=== PATIENT | female | born 1970 | race Caucasian/White ===

== ENCOUNTER 2019-03-20 14:18 | Emergency (ER) | payer MEDICAID ==
--- NOTE | 2019-03-20 16:00 | RADIOLOGY REPORT (SQ) ---
EXAM DESCRIPTION: FINGER RIGHT COMPLETED DATE/TIME: 03/20/2019 3:35 pm REASON FOR STUDY: swollen, unable to bed, crushed in trunk COMPARISON: None. NUMBER OF VIEWS: Three views. TECHNIQUE: AP, lateral, and oblique images acquired of the right fifth finger. LIMITATIONS: None. FINDINGS: MINERALIZATION: Normal. BONES: Dorsal dislocation at the proximal interphalangeal joint fifth digit. No acute fracture iden tified. Soft tissue swelling. SOFT TISSUES: See above. OTHER: No other significant finding. IMPRESSION: 1. Dorsal dislocation fifth proximal interphalangeal joint. Soft tissue swelling. 2. No acute fracture identified. Follow-up examination post reduction films. COMMENT: SITE OF TRAUMA/COMPLAINT MARKED/STAMP COMPLETED: YES. TECHNICAL DOCUMENTATION: JOB ID: [id number] [employer]- All Rights Reserved Reading location - IP/workstation name: [email or web address]
[2019-03-20] MEDS ORDERED: LIDOCAINE 1% INJ-PF (10 MG/ML) 30 ML SDV INJ ONE (16:27)
--- NOTE | 2019-03-20 16:48 | ER Document Report ---
HPI - HPI Time Seen by Provider: 03/20/19 15:26 Pain Level: 3 Notes: Patient is a 49-year-old female presenting with possible dislocation to her right fifth digit. Patient states that she fell approximately 1 week ago. Patient states that she has not sought care for this as she thought it might get better. Patient denies any history of previous trauma to this area. States she has been taken Tylenol and ibuprofen at home. - CONSTITUTIONAL Constitutional: DENIES: Fever, Chills - REPRODUCTIVE Reproductive: DENIES: : Past Medical History - General Information source: Patient - Social History Smoking Status: Current Every Day Smoker Frequency of alcohol use: None Drug Abuse: None Family History: Reviewed & Not Pertinent Patient has suicidal ideation: No Patient has homicidal ideation: No Renal/ Medical History: Denies: Hx Peritoneal Dialysis Psychiatric Medical History: Reports: Hx Depression Surgical Hx: Negative - Immunizations Immunizations up to date: Yes Vertical Provider Document - CONSTITUTIONAL Notes: PHYSICAL EXAMINATION: GENERAL: Well-appearing, well-nourished and in no acute distress. HEAD: Atraumatic, normocephalic. EYES: Pupils equal round extraocular movements intact, conjunctiva are normal. ENT: Nares patent NECK: Normal range of motion LUNGS: No respiratory distress Musculoskeletal: Limited range of motion to right fifth digit, cap refill less than 3 seconds, normal/strong radial pulse. Obvious dislocation noted. Soft tissue swelling noted. NEUROLOGICAL: Normal speech, normal gait. PSYCH: Normal mood, normal affect. SKIN: Warm, Dry, normal turgor, no rashes or lesions noted. - INFECTION CONTROL TRAVEL OUTSIDE OF THE [place] IN LAST 30 DAYS: No Course - Re-evaluation Re-evalutation: Dislocation noted on the x-ray at the fifth PIP joint on the right hand. There is also soft tissue swelling. No fracture was identified. A digital block was performed and attempted reduction of the dislocation. I believe based on palpation that this was achieved however patient refused to repeat x-rays as she states that she has to leave. Patient encouraged to follow-up with orthopedics, splint placed. - Vital Signs Vital signs: Temp Pulse Resp BP Pulse Ox 98.7 F 77 16 118/67 100 03/20/19 14:22 03/20/19 14:22 03/20/19 14:22 03/20/19 14:22 03/20/19 14:22 Procedures - Immobilization Right fifth digit Pre-Proc Neuro Vasc Exam: Normal Immobilizer type: Finger splint (Static) Post-Proc Neuro Vasc Exam: Normal Alignment checked and good: Yes - Joint Reduction/Fracture Care Right fifth digit Fracture: Other - No fracture identified on initial x-ray. Notes: Patient refused post reduction x-rays. Discharge - Discharge Clinical Impression: Right fifth digit dislocation Condition: Stable Disposition: HOME, SELF-CARE Additional Instructions: Your finger dislocation was reduced today and a splint was applied. Please follow-up with orthopedics, their number is below. You have opted to not stay for repeat x-rays. Please take ibuprofen 600 mg every 6 hours. Apply ice to the area and elevate. Referrals: KT DEL CID, DO [ACTIVE STAFF] - Follow up as needed
[2019-03-20] MEDS ORDERED: HYDROCODONE/ACETAMINOPHEN 5-325 MG (6 TAB/ER DISP) PO PRN (17:05)
[2019-03-20 17:12] VITALS: BP 132/92
== END 2019-03-20 17:18 | disposition home or self-care (01) ==
LOC: ER 14:18
DX: S63.286A Dislocation of proximal interphalangeal joint of right little finger, initial encounter (principal); W19.XXXA Unspecified fall, initial encounter; F17.200 Nicotine dependence, unspecified, uncomplicated
CPT/HCPCS: 99283; 73140; 26775; J3490